=== PATIENT | female | born 1930 | race Caucasian/White ===

== ENCOUNTER 2018-01-04 22:01 | Observation (INO) | payer BC ==
[2018-01-04] MEDS: DEXTROSE 10% IV (22:45)
[2018-01-04 23:12] LABS: POC GLUCOSE 131 mg/dL (70-99)
[2018-01-04 23:12] LABS: POC GLUCOSE 38 mg/dL (70-99)
[2018-01-04] MEDS ORDERED: ONDANSETRON PF 4 MG/2 ML VIAL. IV (23:15)
[2018-01-04] MEDS ORDERED: DEXTROSE 50% 25 GM / 50ML DISP.SYRIN. IV (23:15)
[2018-01-04] MEDS: IV DEXTROSE 5 %-0.45 % NACL 1,000 ML IV (23:30)
[2018-01-04 23:55] LABS: ADD MAN DIFF? NO
[2018-01-05 00:19] LABS: BASO # 0.1 x10^3/uL (0.0-0.2); BASO % 1 % (0-3); EOS # 0.2 x10^3/uL (0.0-0.7); EOS % 2 % (0-3); HEMATOCRIT 34.8 % (36.0-47.0); HEMOGLOBIN 11.1 g/dL (12.0-15.5); LYMPH # 1.3 x10^3/uL (1.0-4.8); LYMPH % 17 % (24-48); MEAN CORPUSCULAR HEMOGLOBIN 27 pg (25-35); MEAN CORPUSCULAR HGB CONC 32 g/dL (31-37); MEAN CORPUSCULAR VOLUME 83 fL (79-100); MONO # 0.8 x10^3/uL (0.0-1.1); MONO % 11 % (0-9); NEUT # 5.1 x10^3uL (1.8-7.7); NEUT % 68 % (31-73); PLATELET COUNT 219 x10^3/uL (140-400); RED CELL DISTRIBUTION WIDTH 26.2 % (11.5-14.5); WHITE BLOOD COUNT 7.4 x10^3/uL (4.0-11.0)
[2018-01-05 00:24] LABS: ANION GAP 14 (6-14); BLOOD UREA NITROGEN 76 mg/dL (7-20); BUN/CREATININE RATIO 26 (6-20); CALCIUM 9.1 mg/dL (8.5-10.1); CARBON DIOXIDE 23 mmol/L (21-32); CHLORIDE 96 mmol/L (98-107); CREATININE 2.9 mg/dL (0.6-1.0); GFR 15.4; GLUCOSE 199 mg/dL (70-99); POTASSIUM 5.3 mmol/L (3.5-5.1); SODIUM 133 mmol/L (136-145)
[2018-01-05 00:30] LABS: ALBUMIN 3.4 g/dL (3.4-5.0); ALBUMIN/GLOBULIN RATIO 0.7 (1.0-1.7); ALK PHOS 67 U/L (46-116); ALT (SGPT) 34 U/L (14-59); AST (SGOT) 33 U/L (15-37); TOTAL BILIRUBIN 0.4 mg/dL (0.2-1.0); TOTAL PROTEIN 8.3 g/dL (6.4-8.2)
[2018-01-05] MEDS: IV DEXTROSE 5 %-0.45 % NACL 1,000 ML IV (00:41)
[2018-01-05] MEDS: METOPROLOL TARTRATE 5 MG/5 ML VIAL. IVP (00:46)
[2018-01-05 03:48] LABS: PLT ESTIMATE ADEQUATE (ADEQUATE)
[2018-01-05 03:49] LABS: ANISOCYTOSIS MOD
[2018-01-05 03:50] LABS: TEAR DROP CELLS OCC
[2018-01-05] MEDS: ACETAMINOPHEN 325 MG TABLET. PO ×2 (05:01→13:03)
[2018-01-05 05:24] LABS: ANION GAP 5 (6-14); BLOOD UREA NITROGEN 71 mg/dL (7-20); CALCIUM 9.4 mg/dL (8.5-10.1); CARBON DIOXIDE 28 mmol/L (21-32); CHLORIDE 100 mmol/L (98-107); CREATININE 2.7 mg/dL (0.6-1.0); GFR 16.7; GLUCOSE 119 mg/dL (70-99); SODIUM 133 mmol/L (136-145)
[2018-01-05 05:33] LABS: POTASSIUM 5.2 mmol/L (3.5-5.1)
[2018-01-05 08:17] LABS: POC GLUCOSE 114 mg/dL (70-99)
[2018-01-05 12:19] LABS: POC GLUCOSE 254 mg/dL (70-99)
[2018-01-05] MEDS ORDERED: ACETAMINOPHEN 500 MG TABLET PO (15:15)
[2018-01-05] MEDS ORDERED: FUROSEMIDE 40 MG TABLET. PO (16:30)
[2018-01-05] MEDS ORDERED: LISINOPRIL 5 MG TABLET. PO (16:30)
[2018-01-05] MEDS ORDERED: LOSARTAN POTASSIUM 50 MG TABLET. PO (16:30)
[2018-01-05] MEDS: POLYETHYLENE GLYCOL 3350 17 GM PACKET. PO (16:30)
[2018-01-05] MEDS ORDERED: POTASSIUM CHLORIDE 20 MEQ TABLET.ER. PO (16:30)
[2018-01-05] MEDS: FERROUS SULFATE 325 MG TABLET. PO (16:42)
[2018-01-05] MEDS: AMIODARONE HCL 200 MG TABLET. PO (16:42)
[2018-01-05] MEDS: PANTOPRAZOLE 40 MG TABLET.DR. PO (16:42)
[2018-01-05] MEDS: CYANOCOBALAMIN (VITAMIN B-12) 1,000 MCG TABLET. PO (16:42)
[2018-01-05] MEDS: glipiZIDE ER 2.5 MG TAB.ER.24 PO (16:42)
[2018-01-05] MEDS: LEVOTHYROXINE 100 MCG TABLET PO (16:42)
[2018-01-05] MEDS: METOPROLOL SUCC 24HR ER 50 MG TAB.ER.24H. PO (16:42)
[2018-01-05] MEDS: IV NORMAL SALINE 1000ML BAG 1,000 ML IV (16:43)
[2018-01-05 16:44] LABS: POC GLUCOSE 181 mg/dL (70-99)
[2018-01-05 17:44] LABS: INR 1.7 (0.8-1.1); PROTHROMBIN TIME PATIENT 19.2 SEC (11.7-14.0)
[2018-01-05] MEDS: WARFARIN 4 MG TABLET. PO (18:12)
[2018-01-05 20:50] LABS: POC GLUCOSE 198 mg/dL (70-99)
[2018-01-05] MEDS: GABAPENTIN 300 MG CAPSULE. PO (20:51)
[2018-01-05] MEDS: ASCORBIC ACID 500 MG TABLET PO (20:51)
[2018-01-05] MEDS ORDERED: CELECOXIB 100 MG CAPSULE. PO (21:00)
[2018-01-06 05:22] LABS: ADD MAN DIFF? NO
[2018-01-06 05:32] LABS: BASO % 1 % (0-3); EOS # 0.4 x10^3/uL (0.0-0.7); EOS % 5 % (0-3); HEMATOCRIT 33.5 % (36.0-47.0); HEMOGLOBIN 11.1 g/dL (12.0-15.5); LYMPH # 1.5 x10^3/uL (1.0-4.8); LYMPH % 23 % (24-48); MEAN CORPUSCULAR HEMOGLOBIN 27 pg (25-35); MEAN CORPUSCULAR HGB CONC 33 g/dL (31-37); MEAN CORPUSCULAR VOLUME 82 fL (79-100); MONO # 0.9 x10^3/uL (0.0-1.1); MONO % 13 % (0-9); NEUT # 3.8 x10^3uL (1.8-7.7); NEUT % 58 % (31-73); PLATELET COUNT 199 x10^3/uL (140-400); RED CELL DISTRIBUTION WIDTH 26.2 % (11.5-14.5); WHITE BLOOD COUNT 6.5 x10^3/uL (4.0-11.0)
[2018-01-06] MEDS: IV NORMAL SALINE 1000ML BAG 1,000 ML IV (05:35)
[2018-01-06 05:47] LABS: ANION GAP 10 (6-14); BLOOD UREA NITROGEN 48 mg/dL (7-20); CALCIUM 8.7 mg/dL (8.5-10.1); CARBON DIOXIDE 25 mmol/L (21-32); CHLORIDE 105 mmol/L (98-107); GFR 23.6; GLUCOSE 70 mg/dL (70-99); MAGNESIUM 1.9 mg/dL (1.8-2.4); PHOSPHORUS 3.1 mg/dL (2.6-4.7); POTASSIUM 4.4 mmol/L (3.5-5.1); SODIUM 140 mmol/L (136-145)
[2018-01-06] MEDS ORDERED: AMIODARONE HCL 200 MG TABLET. PO (09:00)
[2018-01-06 09:20] LABS: POC GLUCOSE 92 mg/dL (70-99)
[2018-01-06] MEDS: PANTOPRAZOLE 40 MG TABLET.DR. PO (09:24)
[2018-01-06] MEDS: METOPROLOL SUCC 24HR ER 50 MG TAB.ER.24H. PO (09:24)
[2018-01-06] MEDS: CYANOCOBALAMIN (VITAMIN B-12) 1,000 MCG TABLET. PO (09:24)
[2018-01-06] MEDS: GABAPENTIN 300 MG CAPSULE. PO (09:24)
[2018-01-06] MEDS: ASCORBIC ACID 500 MG TABLET PO (09:24)
[2018-01-06] MEDS: LEVOTHYROXINE 100 MCG TABLET PO (09:25)
[2018-01-06] MEDS: FERROUS SULFATE 325 MG TABLET. PO (09:25)
[2018-01-06] MEDS: glipiZIDE ER 2.5 MG TAB.ER.24 PO (09:26)
[2018-01-06] MEDS: AMIODARONE HCL 200 MG TABLET. PO (09:26)
[2018-01-06] MEDS: POLYETHYLENE GLYCOL 3350 17 GM PACKET. PO (09:30)
[2018-01-06 12:15] LABS: POC GLUCOSE 199 mg/dL (70-99)
[2018-01-06] MEDS: WARFARIN 4 MG TABLET. PO (16:05)
[2018-01-07] MEDS ORDERED: glipiZIDE ER 2.5 MG TAB.ER.24 PO (08:00)
== END 2018-01-06 16:50 | disposition home or self-care (01) ==
LOC: ER 22:01 → 2 SOUTH 23:09
PROVIDERS: Internal Medicine
DX: E11.649 Type 2 diabetes mellitus with hypoglycemia without coma (principal); E11.22 Type 2 diabetes mellitus with diabetic chronic kidney disease; E11.40 Type 2 diabetes mellitus with diabetic neuropathy, unspecified; I13.0 Hypertensive heart and chronic kidney disease with heart failure and stage 1 through stage 4 chronic kidney disease, or unspecified chronic kidney disease; E03.9 Hypothyroidism, unspecified; I50.9 Heart failure, unspecified; N17.9 Acute kidney failure, unspecified; N18.3 Chronic kidney disease, stage 3 (moderate); I25.10 Atherosclerotic heart disease of native coronary artery without angina pectoris; M19.90 Unspecified osteoarthritis, unspecified site; K21.9 Gastro-esophageal reflux disease without esophagitis; I48.2 Chronic atrial fibrillation; I25.2 Old myocardial infarction; Z82.49 Family history of ischemic heart disease and other diseases of the circulatory system; Z95.1 Presence of aortocoronary bypass graft; Z96.641 Presence of right artificial hip joint; Z85.3 Personal history of malignant neoplasm of breast
CPT/HCPCS: 36415; 70450; 71046; 80048; 80053; 82962; 83735; 84100; 85025; 85610; 93005; 96361; 96374; 97161-GP; 97165-GO; 99285; G0378; G0379; G8987-CI-GO; G8988-CH-GO; J3490; J7030

== ENCOUNTER 2018-05-21 19:12 | Emergency (ER) | payer BC, MEDICARE ==
[~2018-05-21] VITALS: Ht 152.4 cm; Wt 70.3 kg
[~2018-05-21 19:12] MED LIST: ACET325T9 PO; AMIO200T4 PO; ASCO500T3 PO; CEFP200T PO; CELE100C PO; CYAN10005 PO; FERR325T72 PO; FURO-68 PO; GABA-586 PO; GLIP-112 PO; LEVO100T5 PO; LINE600T PO; LISI-338 PO; LOSA50TA7 PO; METF10007 PO; METO-239 PO; OMEP20CA9 PO; POLY17PO29 PO; POTA20TA82 PO; WARF4TAB64 PO; roxanol SL
[2018-05-21] MEDS ORDERED: IV NORMAL SALINE 500ML BAG 250 ML IV ONE (19:30)
[2018-05-21 20:31] LABS: ALBUMIN 2.5 g/dL (3.4-5.0); ALBUMIN/GLOBULIN RATIO 0.6 (1.0-1.7); CALCIUM 9.2 mg/dL (8.5-10.1); CREATININE 2.4 mg/dL (0.6-1.0); GFR 19.1; TOTAL BILIRUBIN 1.2 mg/dL (0.2-1.0); TOTAL PROTEIN 6.8 g/dL (6.4-8.2)
[2018-05-21 20:38] LABS: POTASSIUM 6.1 mmol/L (3.5-5.1)
[2018-05-21] MEDS ORDERED: INSULIN REGULAR 100 UNIT/ML 3ML VIAL. IV ONE (21:00)
--- NOTE | 2018-05-21 22:25 | PHYS DOC ---
Past Medical History Past Medical History: Anemia, Cancer, CHF, Diabetes-Type II, Hypertension, ND, Other Additional Past Medical Histor: BREAST CA, Past Surgical History: Appendectomy, Cholecystectomy, Coronary Bypass Surgery, Hip Replacement, Tonsillectomy Additional Past Surgical Histo: RT HI, LEFT MASECTOMY, OPEN HEART Alcohol Use: None Drug Use: None Adult General Chief Complaint Chief Complaint: BLOOD SUGAR PROBLEM HPI HPI Patient is a 87 year old female who is a hospice patient brought in by ambulance with a chief complaint of hyperglycemia she was just placed on hospice earlier this week she has history of severe coronary artery disease she had a recent catheter that showed no intervenABLE LESION And so ultimately she was discharged home on hospice. Apparently the blood sugar was high as in the 400s they only had long-acting insulin at the local pharmacy and so the hospice nurse called 911 for blood sugar control. Patient is slightly more altered than baseline does require oxygen at baseline No other obvious new changes no fever that she knows about history limited by the patient's mental status Review of Systems Review of Systems Limited by mental status Current Medications Current Medications Current Medications Medications (Trade) Dose Ordered Sig/Myron Start Time Stop Time Status Last Admin Dose Admin Insulin Human Regular (HumuLIN R VIAL) 10 unit 1X ONCE 05/21/18 21:00 05/21/18 21:01 DC 05/21/18 21:08 10 UNIT Sodium Chloride 250 ml @ 500 mls/hr 1X ONCE 05/21/18 19:30 05/21/18 19:59 DC 05/21/18 19:50 500 MLS/HR Allergies Allergies Allergies Coded Allergies Type Severity Reaction Last Updated Verified Penicillins Allergy Intermediate hives 12/05/17 Yes morphine Allergy Intermediate vomiting 12/05/17 Yes Physical Exam Physical Exam Constitutional: Well developed, chronically ill-appearing HENT: Normocephalic, atraumatic, bilateral external ears normal, oropharynx dry , no oral exudates, nose normal. [] Eyes: PERRLA, EOMI, conjunctiva normal, no discharge. [] Neck: Normal range of motion, no tenderness, supple, no stridor. [] Cardiovascular:Heart rate regular rhythm, no murmur [] Lungs & Thorax: Coarse bibasilar sounds Abdomen: Bowel sounds normal, soft, no tenderness, no masses, no pulsatile masses. [] Skin: Warm, dry, no erythema, no rash. [] Back: No tenderness, no CVA tenderness. [] Extremities: No tenderness, no cyanosis, no clubbing, ROM intact, no edema. [] Neurologic: Eyes open follows commands able to answer some basic questions Current Patient Data Vital Signs Vital Signs Date Time Temp Pulse Resp B/P (MAP) Pulse Ox O2 Delivery O2 Flow Rate FiO2 05/21/18 19:15 97.8 81 20 147/61 (89) 93 Nasal Cannula 5.0 97.8 Lab Values Laboratory Tests Test 05/21/18 19:40 05/21/18 21:38 Sodium Level 140 mmol/L (136-145) Potassium Level 6.1 mmol/L (3.5-5.1) *H Chloride Level 103 mmol/L (98-107) Carbon Dioxide Level 24 mmol/L (21-32) Anion Gap 13 (6-14) Blood Urea Nitrogen 80 mg/dL (7-20) H Creatinine 2.4 mg/dL (0.6-1.0) H Estimated GFR (Cockcroft-Gault) 19.1 BUN/Creatinine Ratio 33 (6-20) H Glucose Level 433 mg/dL (70-99) H Calcium Level 9.2 mg/dL (8.5-10.1) Total Bilirubin 1.2 mg/dL (0.2-1.0) H Aspartate Amino Transferase (AST) 880 U/L (15-37) H Alanine Aminotransferase (ALT) 731 U/L (14-59) H Alkaline Phosphatase 126 U/L (46-116) H Total Protein 6.8 g/dL (6.4-8.2) Albumin 2.5 g/dL (3.4-5.0) L Albumin/Globulin Ratio 0.6 (1.0-1.7) L Glucose (Fingerstick) 356 mg/dL (70-99) H Laboratory Tests 05/21/18 19:40 EKG EKG [] Radiology/Procedures Radiology/Procedures [] Course & Med Decision Making Course & Med Decision Making Pertinent Labs and Imaging studies reviewed. (See chart for details) []87-year-old female with multiple medical problems CAD CHF diabetes poorly controlled who is presenting basically she is a hospice patient was here to get some insulin. Apparently the short acting insulin was not available at the local pharmacy. Here we checked electrolytes potassium was mildly elevated this is probably from dehydration patient was given gentle IV fluid bolus and a dose of IV insulin which did slowly trending down her blood sugar. She is on hospice I did speak with patient's provider Dr. Weathers who knows her very well he thought it would be appropriate for her to go home as well. I did briefly discuss with the patient's son that this patient is on hospice and that she likely would not benefit from readmission and he agrees. I also noted the elevated LFTs this may be from congestive hepatopathy or other etiology however given her hospice status I feel that it is reasonable for her to go home for continued symptom control Dragon Disclaimer Dragon Disclaimer This electronic medical record was generated, in whole or in part, using a voice recognition dictation system. Departure Departure Impression: Primary Impression: Hyperglycemia Disposition: 01 HOME, SELF-CARE Condition: STABLE Patient Instructions: Hyperglycemia, [id number] ODALIS WILLIS MD May 21, 2018 22:25
[2018-05-22 00:30] VITALS: BP 122/56
[2018-05-22] MEDS ORDERED: INSULIN LISPRO 300 UNITS/3 ML INSULN.PEN. SQ ONE (01:00)
== END 2018-05-22 00:50 | disposition home or self-care (01) ==
LOC: ER 19:12
DX: E11.65 Type 2 diabetes mellitus with hyperglycemia (principal); I11.0 Hypertensive heart disease with heart failure; I50.9 Heart failure, unspecified; I25.2 Old myocardial infarction; Z86.2 Personal history of diseases of the blood and blood-forming organs and certain disorders involving the immune mechanism; Z90.89 Acquired absence of other organs; Z90.49 Acquired absence of other specified parts of digestive tract; Z95.5 Presence of coronary angioplasty implant and graft; Z88.0 Allergy status to penicillin; Z88.5 Allergy status to narcotic agent
CPT/HCPCS: 36415; 80053; 82962; 96361; 96372; 96374; 99285; J1815; J7040